=== PATIENT | male | born 1940 | race Caucasian/White ===

== ENCOUNTER 2019-04-25 06:00 | Outpatient (RCR) | payer MEDICARE, SELFPAY | END 2019-04-26 23:59 | disposition home or self-care (01) | LOC: LAB 06:00 | PROVIDERS: Family Provider Family Medicine; Visit Provider Family Medicine | DX: I25.810 Atherosclerosis of coronary artery bypass graft(s) without angina pectoris (principal); E11.8 Type 2 diabetes mellitus with unspecified complications; N39.0 Urinary tract infection, site not specified; D69.6 Thrombocytopenia, unspecified; K21.9 Gastro-esophageal reflux disease without esophagitis; I50.32 Chronic diastolic (congestive) heart failure | CPT/HCPCS: 36415 ×3; 80048 ×3; 81001; 85025 ×3; 87086 ==

== ENCOUNTER 2019-05-13 11:18 | Outpatient (RCR) | payer MEDICARE, SELFPAY ==
[2019-05-13 12:18] LABS: Prealbumin 13.2 mg/dL (20-40)
[2019-05-13 12:50] LABS: Anion Gap 13.3 (5-19); Blood Urea Nitrogen 17 mg/dL (8-23); Calcium 8.9 mg/Dl (8.8-10.2); Carbon Dioxide 23 mmol/L (22-29); Chloride 108 mmol/L (98-107); Glucose 91 mg/dL (74-106); Potassium 3.3 mmol/L (3.5-5.1); Sodium 141 mmol/L (136-145)
== END 2019-05-27 23:59 | disposition home or self-care (01) ==
LOC: LAB 11:18
PROVIDERS: Family Provider Family Medicine; Referring Provider Family Medicine; Visit Provider Family Medicine
DX: I70.90 Unspecified atherosclerosis (principal)
CPT/HCPCS: 80048; 84134